=== PATIENT | female | born 1965 | race Caucasian/White ===

== ENCOUNTER → 2020-11-25 16:49 | Outpatient (BNVA) | payer OTHER, SELFPAY | PROVIDERS: Family Provider Nurse Practitioner; Visit Provider Nurse Practitioner Family | DX: J02.9 Acute pharyngitis, unspecified (principal) | CPT/HCPCS: 87071; 87880 ==

== ENCOUNTER 2022-05-27 06:03 | Outpatient (CLI) | payer OTHER, SELFPAY ==
--- NOTE | 2022-05-27 06:14 | US_ITS ---
WS: [id number] ULTRASOUND SOFT TISSUES RIGHT neck. HISTORY: ? ENLARGED LYMPH NODE COMPARISON: None available. TECHNIQUE: 2-D and color Doppler imaging is submitted. Palpable area in the RIGHT neck corresponds to the submandibular lymph node measuring 1.4 x 0.6 x 1.9 cm. Normal fatty hilum and normal cortical thickening. Normal vascularity. There are a few additiona l smaller but similar lymph nodes. US/US soft tissue head neck [id number] IMPRESSION: Palpable area corresponds to a normal-appearing RIGHT submandibular lymph node.
== END 2022-05-27 06:04 | disposition home or self-care (01) ==
LOC: RAD 06:05
PROVIDERS: PCP Nurse Practitioner Family; Visit Provider Nurse Practitioner Family
DX: R59.9 Enlarged lymph nodes, unspecified (principal); R53.83 Other fatigue; J02.9 Acute pharyngitis, unspecified
CPT/HCPCS: 76536

== ENCOUNTER 2023-09-25 14:03 | Emergency (ER) | payer OTHER, SELFPAY ==
[2023-09-25 14:12] VITALS: BP 162/114; PULSE 88; TEMP 36.9; O2SAT 97; BMI 17.5
--- NOTE | 2023-09-25 14:17 | CTR_ITS ---
PROCEDURE INFORMATION: Exam: CT Head Without Contrast Exam date and time: 09/25/2023 2:39 PM Age: 58 years old Clinical indication: Pain; Dizziness; Headache; Additional info: CALVERT, dizzy, left arm tingling. Onset yesterday TECHNIQUE: Imaging protocol: Computed tomography of the head without contrast. Radiation optimization: All CT scans at this facility use at least one of these dose optimization techniques: automated exposure control; mA and/or kV adjustment per patient size (includes targeted exams where dose is matched to clinical indication); or iterative reconstruction. REPORTING DATA: Count of CT and Cardiac NM exams in prior 12 months: This patient has received 0 known CTs and 0 known cardiac nuclear medicine studies in the 12 months prior to the current study. COMPARISON: US soft tissue head neck [id number] 05/27/2022 6:22 AM RADIATION DOSE METRICS: Total DLP (mGy-cm): 981.98 FINDINGS: Brain: Normal. No hemorrhage. Unremarkable white matter. No mass effect. Ventricles: No hydrocephalus or evidence of increased intracranial pressure. Paranasal sinuses: Visualized sinuses are unremarkable. No fluid levels. Mastoid air cells: Visualized mastoid air cells are well aerated. Bones/joints: No acute abnormality. No acute fracture. Soft tissues: Unremarkable. CT/CT head wo con* [id number] IMPRESSION: No acute intracranial abnormality identified.
[2023-09-25 14:48] LABS: Basophils # 0.1 10^3/uL (0.0-0.1); Basophils % 0.7 %; Eosinophils # 0.1 10^3/uL (0.0-0.8); Eosinophils % 1.3 %; Lymphocytes # 2.9 10^3/uL (0.8-4.8); Lymphocytes % 39.2 %; Mean Corpuscular Hemoglobin 30.1 pg (27-33); Mean Corpuscular Volume 94.1 fl (85-98); Mean Platelet Volume 10.3 fL (7.4-10.4); Monocytes # 0.5 10^3/uL (0.2-0.9); Monocytes % 6.6 %; Neutrophils % 52.1 %; Nucleated Red Blood Cells % 0 %; Platelet Count 158 10^3/cmm (157-399); Red Blood Count 4.78 10^6/uL (3.85-5.65); Red Cell Distribution Width 12.5 % (12.1-15.1); White Blood Count 7.48 10^3/uL (3.29-11.43)
[2023-09-25 15:00] LABS: Anion Gap 11.4 (5-19); Blood Urea Nitrogen 5 mg/dL (6-20); Calcium 8.9 mg/dL (8.5-10.5); Carbon Dioxide 30 mmol/L (22-29); Chloride 100 mmol/L (98-107); Creatinine Clr Calc Pharmacy 101.7974; Glomerular Filtration Rate 127.6 mL/min (90-130); Glucose 121 mg/dL (65-115); Osmolality Calculated 285 mOsm/kg (285-295); Potassium 3.4 mmol/L (3.5-5.1); Sodium 138 mmol/L (136-145)
[2023-09-25] MEDS: ketorolac 60 mg/2 mL INJ IM (15:36)
[2023-09-25] MEDS: dexamethasone 10 mg/mL INJ IM (15:36)
[2023-09-25] MEDS: orphenadrine 30 mg/mL Inj 2 mL 60 MG IM (15:37)
[2023-09-25 15:40] LABS: Blood Urine 2+ (Negative); Glucose Urine UA Norm (Normal); Ketones Urine Negative (Negative); Protein Urine Neg (Negative); Specific Gravity, Urine 1.005 (1.005-1.030); Urine Appearance Clear (CLEAR); Urine Color Straw (Yellow); pH Urine 6.5 (5-7)
[2023-09-25 15:41] LABS: Add Urine Culture? Yes; Add Urine Microscopic? YES; Bacteria Urine TRACE /hpf; Bilirubin Urine Neg (Negative); Leukocyte Esterase Urine 1+ (Negative); Nitrate Urine Negative (Negative); RBC Urine 0-4 /hpf (0-2); Squamous Epithelial Cell Urine 0-4 /hpf (0-5); Urobilinogen Urine Norm (Negative)
--- NOTE | 2023-09-25 16:43 | ED_ITS ---
HPI - Headache General: Chief Complaint: Headache Stated Complaint: headache, dizziness Time Seen by Provider: 09/25/23 14:17 History of Present Illness: Patient is a 58-year-old female that presents to the emergency department with complaints of headache x 2 weeks. Headache has been intermittent over the last 2 weeks but in the last 24 hours has developed this worsening pressure in her head. Patient states that she is taken her prescription migraine medicine without relief. Patient states nausea and vomiting as well. Patient denies vision change, dizziness, falls or head trauma, anticoagulation use, fevers chills, chest pain shortness of breath. Denies exposure to any rec ent illnesses. Review of Systems General: Reports: 10 or more systems reviewed and unremarkable except in HPI and below PFSH ED PFSH: Medical History COPD (chronic obstructive pulmonary disease) Degenerative disc disease Hypertension Surgical History Hx of hysterectomy Hx of lymph node excision Social History Smoking and tobacco/nicotine status: current every day tobacco/nicotine user Physical Exam Const: COMMON NORMALS: no acute distress, patient oriented x3 and alert GENERAL APPEARANCE: cooperative ORIENTATION/CONSCIOUSNESS: Yes awake, Yes oriented to person, Yes oriented to place and Yes oriented to time HENMT: COMMON NORMALS: normocephalic and atraumatic HEAD & SCALP: normocephalic and atraumatic FACE & SINUS: normal facial exam MOUTH: Normal oral and palatal mucosa present THROAT: posterior oropharynx normal Eye: COMMON NORMALS: Equal, round and reactive pupils present, EOMs intact bilaterally, conjunctivae normal and no scleral icterus GENERAL EYE: appearance normal, both eyes and all related structures ALIGNMENT: Yes alignment normal PERIORBITAL: periorbital findings normal CONJUNCTIVA: Yes conjunctivae normal PUPIL: Yes Equal, round and reactive pupils present Neck/C-Spine: COMMON NORMALS: full ROM GENERAL: Yes normal visual inspection Lymph: LYMPHATIC: no lymphadenopathy noted Chest: COMMONS NORMALS: normal inspection of the chest Breast/axilla inspection: Yes no chest deformity, asymmetry, normal contours, no nodules, masses, tenderness Resp: COMMON NORMALS: normal respiratory effort, No retractions, No use of accessory muscles and clear to auscultation bilaterally EFFORT & INSPECTION: Yes able to speak in complete sentences and Yes symmetric chest movement AUSCULTATION: clear to auscultation bilaterally Cardio: COMMON NORMALS: regular rate, regular rhythm and Peripheral pulses 2+ throughout RATE: regular rate RHYTHM: regular rhythm PERIPHERAL PULSES: Peripheral pulses 2+ throughout GI: COMMON NORMALS: Normal to inspection, nondistended, normoactive bowel sounds present, Soft to palpation, non-tender and No hepatosplenomegaly present INSPECTION: Yes normal to inspection AUSCULTATION: Yes normoactive bowel sounds PALPATION: Yes Soft to palpation and Yes No hepatosplenomegaly present RECTAL EXAM: deferred Extremity: COMMON NORMALS: normal to inspection GENERAL: Yes normal exam e xcept as noted Neuro: COMMON NORMALS: patient oriented x3 SENSORIUM/ORIENTATION: Yes alert, Yes oriented to person, Yes oriented to place and Yes oriented to time CRANIAL NERVES: Yes CN normal except as noted Psych: COMMON NORMALS: mental status grossly normal, Normal thought process present, cooperative, activity/motor behavior normal, denies homicidal ideation and denies suicidal ideation THOUGHT PROCESS: Normal thought process present Skin: COMMON NORMALS: no rashes or lesions noted, no wounds and turgor normal GENERAL SKIN EXAM: no rashes or lesions noted and turgor normal Course Vital Signs: Vital signs: Vital Signs Temperature 98.5 F 09/25/23 14:12 Pulse Rate 88 09/25/23 14:12 Blood Pressure 162/114 09/25/23 14:12 Pulse Oximetry 97 09/25/23 14:12 Oxygen Delivery Me thod Room Air 09/25/23 14:12 MDM - Headache Medical Decision Making Patient was evaluated in the emergency department today for complaints of headache. Patient denied any head trauma. Differential diagnosis includes ICH, aneurysmal rupture, tension headache, viral illness. Patient underwent diagnostic evaluation. CT head was unremarkable Laboratory studies reveal a potassium of 3.4. Here in the emergency department I treated her pain with Norflex, Toradol, Decadron. That almost completely resolved her headache. I found that she had a urinary tract infection for which we treated her with Bactrim. Her potassium was 3.4 so therefore treated with 20 mEq. I am going to discharge patient home with prescriptions for her UTI as well as some medications for her tension headaches. I am advising the patient to follow-up with her primary care doctor. Lab Data 09/25/23 14:32 09/25/23 14:[address] 09/25/23 14:17 IMPRESSION: No acute intracranial abnormality identified. Laboratory Results WBC 7.48 10^3/uL (3.29-11.43) 09/25/23 14:32 RBC 4.78 10^6/uL (3.85-5.65) 09/25/23 14:32 Hgb 14.40 g/dL (11.27-16.99) 09/25/23 14:32 Hct 45.0 % (36-47) 09/25/23 14:32 MCV 94.1 fl (85-98) 09/25/23 14:32 MCH 30.1 pg (27-33) 09/25/23 14:32 MCHC 32.0 g/dL (30-55) 09/25/23 14:32 RDW 12.5 % (12.1-15.1) 09/25/23 14:32 Plt Count 158 10^3/cmm (157-399) 09/25/23 14:32 MPV 10.3 fL (7.4-10.4) 09/25/23 14:32 Neut % (Auto) 52.1 % 09/25/23 14:32 Lymph % (Auto) 39.2 % 09/25/23 14:32 Door % (Auto) 6.6 % 09/25/23 14:32 Eos % (Auto) 1.3 % 09/25/23 14:32 Baso % (Auto) 0.7 % 09/25/23 14:32 Neut # (Auto) 3.90 10^3/uL (1.8-7.7) 09/25/23 14:32 Lymph # (Auto) 2.9 10^3/uL (0.8-4.8) 09/25/23 14:32 Door # (Auto) 0.5 10^3/uL (0.2-0.9) 09/25/23 14:32 Eos # (Auto) 0.1 10^3/uL (0.0-0.8) 09/25/23 14:32 Baso # (Auto) 0.1 10^3/uL (0.0-0.1) 09/25/23 14:32 Nucleated RBC % (auto) 0 % 09/25/23 14:32 Nucleated RBCs # 0.0 /100WBC 09/25/23 14:32 Sodium 138 mmol/L (136-145) 09/25/23 14:32 Potassium 3.4 mmol/L (3.5-5.1) L 09/25/23 14:32 Chloride 100 mmol/L (98-107) 09/25/23 14:32 Carbon Dioxide 30 mmol/L (22-29) H 09/25/23 14:32 Anion Gap 11.4 (5-19) 09/25/23 14:32 BUN 5 mg/dL (6-20) L 09/25/23 14:32 Creatinine 0.5 mg/dL (0.5-0.9) 09/25/23 14:32 GFR Calculation 127.6 mL/min (90-130) 09/25/23 14:32 Glucose 121 mg/dL (65-115) H 09/25/23 14:32 Calculated Osmolality 285 mOsm/kg (285-295) 09/25/23 14:32 Calcium 8.9 mg/dL (8.5-10.5) 09/25/23 14:32 Urine Color Straw (Yellow) 09/25/23 15:15 Urine Appearance Clear (CLEAR) 09/25/23 15:15 Urine pH 6.5 (5-7) 09/25/23 15:15 Ur Specific [place] 1.005 (1.005-1.030) 09/25/23 15:15 Urine Protein Neg (Negative) 09/25/23 15:15 Urine Glucose (UA) Norm (Normal) 09/25/23 15:15 Urine Ketones Negative (Negative) 09/25/23 15:15 Urine Blood 2+ (Negative) H 09/25/23 15:15 Urine Nitrate Negative (Negative) 09/25/23 15:15 Urine Bilirubin Neg (Negative) 09/25/23 15:15 Urine Urobilinogen Norm mg/dL (Negative) 09/25/23 15:15 Ur Leukocyte Esterase 1+ (Negative) H 09/25/23 15:15 Urine RBC 0-4 /hpf (0-2) H 09/25/23 15:15 Urine WBC 5-10 /hpf (0-5) H 09/25/23 15:15 Ur Squamous Epith Cells 0-4 /hpf (0-5) H 09/25/23 15:15 Amorphous Sediment Not Reportable 09/25/23 15:15 Urine Bacteria Trace /hpf (NONE) 09/25/23 15:15 All radiology interpretation(s) finalized by discharge Discharge Plan Discharge Patient Disposition: Home Clinical Impression: Tension headache, Headache, Urinary tract infection Condition: Stable Prescriptions: New methocarbamol 500 mg tablet 500 mg PO Q6H PRN (Reason: Muscle spasms) Qty: 20 0RF sulfamethoxazole-trimethoprim [Bactrim DS] 800-160 mg tablet 1 tab PO BID 7 Days Qty: 14 0RF ondansetron 4 mg tablet,disintegrating 4 mg PO TID 5 Days Qty: 15 0RF No Action lisinopril 20 mg tablet 20 mg PO BID sumatriptan succinate 50 mg tablet 50 mg PO PRN PRN (Reason: Migraine Headache) amlodipine 5 mg tablet 5 mg PO DAILY morphine 60 mg tablet extended release 60 mg PO TID morphine 15 mg tablet 15 mg PO 5XD Discharge Orders: Discharge ED (Routine); Ordered 09/25/23 Ordered By: Carmen Patton Referrals: Debo Pulido MD [Primary Care Provider] - Discharge Diet: Advance as tolerated Discharge Activity: Resume usual activity Patient Instructions: Acute Headache (ED), Opioid Safety, Pain Management, Urinary Tract Infection - Women Activity Restrictions/Additional Instructions: Please follow-up with your primary care doctor. Return to the emergency department for new concerning or worsening symptoms Coding Level of Care Code ED Continuous Process [employer] for [facility]
[2023-09-25] MEDS: potassium chloride ER 20 mEq Tablet PO (16:57)
[2023-09-25] MEDS: sulfamethoxazole-trimeth DS 160-800 mg Tablet 1 TAB PO (16:57)
== END 2023-09-25 17:23 | disposition home or self-care (01) ==
PROVIDERS: Emergency Provider Nurse Practitioner; PCP Family Medicine
DX: G44.209 Tension-type headache, unspecified, not intractable (principal); N39.0 Urinary tract infection, site not specified; J44.9 Chronic obstructive pulmonary disease, unspecified; I10 Essential (primary) hypertension; Z72.0 Tobacco use
CPT/HCPCS: 36415; 70450; 80048; 81001; 85025; 87086; 96372; 99284; J1100; J1885; J2360